=== PATIENT | male | born 1980 | race Caucasian/White ===

== ENCOUNTER 2017-01-27 10:36 | Emergency (ER) | payer OTHER ==
[~2017-01-27] VITALS: Ht 172.7 cm; Wt 84.8 kg
[~2017-01-27 10:36] MED LIST: ATIVAN0.5 MG PO; BUSPAR10 MG PO; CEROVITE ADVANC1 TAB PO; FOLIC ACID1 MG PO; VITAMIN B-1100 MG PO
== END 2017-01-27 12:36 | disposition short-term general hospital (02) ==
LOC: ER 10:36
DX: K21.9 Gastro-esophageal reflux disease without esophagitis (principal)
CPT/HCPCS: A9270